=== PATIENT | female | born 1945 | race Caucasian/White ===

== ENCOUNTER 2017-12-30 12:51 | Inpatient (IN) | payer OTHER ==
[~2017-12-30] VITALS: Ht 157.5 cm; Wt 83.9 kg
[~2017-12-30 12:51] MED LIST: COZAAR25 MG PO; METFORMIN HCL500 MG PO
[2018-01-05] MEDS ORDERED: DOCUSATE SODIU100 MG PO (10:48)
[2018-01-05] MEDS ORDERED: CLONAZEPAM1 MG PO (10:49)
[2018-01-05] MEDS ORDERED: PERCOCET 5-3251 EACH PO (10:49)
[2018-01-05] MEDS ORDERED: ACETAMINOPHEN-1 EAC2 PO (15:11)
== END 2018-01-05 17:03 | DRG 472 ==
LOC: O/R 01-04 05:20 → SURH 01-04 07:00 → PED 01-04 10:54 → SURH 01-04 10:56 → PED 01-05 17:03
PROVIDERS: Orthopaedic Surgery Orthopaedic Surgery of the Spine
PROC: 0RT30ZZ Resection of Cervical Vertebral Disc, Open Approach (ICD-10-PCS; 2018-01-04)
PROC: 07DS3ZZ Extraction of Vertebral Bone Marrow, Percutaneous Approach (ICD-10-PCS; 2018-01-04)
PROC: 0RG20A0 Fusion of 2 or more Cervical Vertebral Joints with Interbody Fusion Device, Anterior Approach, Anterior Column, Open Approach (ICD-10-PCS; principal; 2018-01-04 07:00)
DX: M47.12 Other spondylosis with myelopathy, cervical region (principal); M50.022 Cervical disc disorder at C5-C6 level with myelopathy

== ENCOUNTER 2019-02-12 10:00 | Inpatient (IN) | payer OTHER ==
[~2019-02-12] VITALS: Ht 162.6 cm; Wt 83.0 kg
[~2019-02-12 10:00] MED LIST changes: +ACETAMINOPHEN-1 EAC2 PO; +CLONAZEPAM1 MG PO; +DOCUSATE SODIU100 MG PO; +PERCOCET 5-3251 EACH PO
[2019-02-20] MEDS ORDERED: ACETAMINOPHEN-1 EAC2 PO (09:13)
[2019-02-20] MEDS ORDERED: COLACE100 MG PO (09:14)
[2019-02-20] MEDS ORDERED: XANAX XR0.5 MG PO (09:14)
[2019-02-20] MEDS ORDERED: ALPRAZOLAM0.5 MG PO (13:54)
== END 2019-02-21 14:15 | disposition home or self-care (01) | DRG 520 ==
LOC: ADM 10:00 → EDSTATUS 10:00 → O/R 02-20 05:15 → SURH 02-20 07:00
PROVIDERS: ADMIT Orthopaedic Surgery Orthopaedic Surgery of the Spine
PROC: 0SB20ZZ Excision of Lumbar Vertebral Disc, Open Approach (ICD-10-PCS; 2019-02-20)
PROC: 00NY0ZZ Release Lumbar Spinal Cord, Open Approach (ICD-10-PCS; principal; 2019-02-20 07:00)
DX: M48.062 Spinal stenosis, lumbar region with neurogenic claudication (principal); I10 Essential (primary) hypertension; E11.9 Type 2 diabetes mellitus without complications; Z79.4 Long term (current) use of insulin

== ENCOUNTER 2020-03-18 11:30 | Inpatient (IN) | payer OTHER ==
[~2020-03-18] VITALS: Ht 162.6 cm; Wt 58.1 kg
[~2020-03-18 11:30] MED LIST changes: +ALPRAZOLAM0.5 MG PO; +COLACE100 MG PO; +XANAX XR0.5 MG PO
[2020-03-25] MEDS ORDERED: AMOX-CLAV 875-1 EACH PO (11:28)
[2020-03-25] MEDS ORDERED: COLACE100 MG PO (11:28)
[2020-03-25] MEDS ORDERED: OXYC1TAB9 PO (11:28)
[2020-03-25] MEDS ORDERED: NEURONTIN800 MG PO (11:28)
[2020-03-25] MEDS ORDERED: MEDROLPACK PO (11:28)
== END 2020-03-26 16:43 | disposition home or self-care (01) | DRG 455 ==
LOC: O/R 03-25 06:16 → SURH 03-25 06:16
PROVIDERS: ADMIT Orthopaedic Surgery Orthopaedic Surgery of the Spine; ATTEND Orthopaedic Surgery Orthopaedic Surgery of the Spine
PROC: 0SG10K1 Fusion of 2 or more Lumbar Vertebral Joints with Nonautologous Tissue Substitute, Posterior Approach, Posterior Column, Open Approach (ICD-10-PCS; 2020-03-25)
PROC: 0ST20ZZ Resection of Lumbar Vertebral Disc, Open Approach (ICD-10-PCS; 2020-03-25)
PROC: 07DR3ZZ Extraction of Iliac Bone Marrow, Percutaneous Approach (ICD-10-PCS; 2020-03-25)
PROC: 4A12X4Z Monitoring of Cardiac Electrical Activity, External Approach (ICD-10-PCS; 2020-03-25)
PROC: 0SG10A0 Fusion of 2 or more Lumbar Vertebral Joints with Interbody Fusion Device, Anterior Approach, Anterior Column, Open Approach (ICD-10-PCS; principal; 2020-03-25 20:00)
DX: M48.062 Spinal stenosis, lumbar region with neurogenic claudication (principal); M43.16 Spondylolisthesis, lumbar region; Z20.828 Contact with and (suspected) exposure to other viral communicable diseases

== ENCOUNTER → 2020-09-30 | Emergency (ER) | payer OTHER ==
[~2020-09-30] VITALS: Ht 162.6 cm; Wt 83.0 kg
[~2020-09-30] MED LIST changes: +AMOX-CLAV 875-1 EACH PO; +FORTAMET500 MG; +MEDROLPACK PO; +NEURONTIN800 MG PO; +OXYC1TAB9 PO
== END | disposition left against medical advice (07) ==
LOC: ER 15:51
DX: Z53.20 Procedure and treatment not carried out because of patient's decision for unspecified reasons (principal)